=== PATIENT | female | born 1995 | race Two or more races ===

== ENCOUNTER 2019-06-25 12:34 | Emergency (ER) | payer BC ==
[~2019-06-25] VITALS: Ht 170.2 cm; Wt 72.1 kg
[2019-06-25 12:41] VITALS: BP 126/83
[2019-06-25] MEDS ORDERED: ALBUTEROL FS 2.5 MG/3 ML VIAL.NEB CONTNEB ONE (13:00)
[2019-06-25] MEDS ORDERED: IPRATROPIUM NEB FS 0.5 MG/2.5 ML AMPUL.NEB NEB ONE (13:00)
[2019-06-25 13:06] LABS: APPEARANCE,URINE Clear (CLEAR); BILIRUBIN,URINE Negative (NEGATIVE); BLOOD, URINE Small Ery/uL (NEGATIVE); COLOR,URINE Yellow (YELLOW); KETONES,URINE Negative (NEGATIVE); LEUKOCYTE ESTERASE ,URINE Trace (NEGATIVE); NITRITE, URINE Negative (NEGATIVE); PROTEIN,URINE Negative (NEGATIVE); UGLUCOSE Negative (NEGATIVE); UROBILINOGEN,URINE 0.2 EU/dL (0.2)
[2019-06-25 13:08] LABS: BACTERIA,URINE Few /HPF (None Seen)
[2019-06-25 13:09] LABS: SQUAMOUS EPITHELIAL CELL,UR Few /HPF (None Seen)
[2019-06-25] MEDS ORDERED: ALBUTEROL FS 2.5 MG/3 ML VIAL.NEB ONE (13:10)
[2019-06-25] MEDS ORDERED: FLUCONAZOLE (100 MG) 100 MG TABLET PO ONE (13:30)
--- NOTE | 2019-06-25 13:30 | NUR ---
RT PATIENT WAS DISCHARGED BEFORE THE TX WAS FINISHED.
[2019-06-25] MEDS ORDERED: FLUCONAZOLE (100 MG) 100 MG TABLET ONE (13:43)
== END 2019-06-25 13:59 | disposition home or self-care (01) ==
LOC: ER 12:34
DX: J45.901 Unspecified asthma with (acute) exacerbation (principal); N89.8 Other specified noninflammatory disorders of vagina
CPT/HCPCS: 72170-TC; 81000-TC; 84703-TC

== ENCOUNTER 2020-01-20 10:17 | Emergency (ER) | payer BC ==
[~2020-01-20] VITALS: Ht 170.2 cm; Wt 70.8 kg
[2020-01-20 10:29] VITALS: BP 132/85
--- NOTE | 2020-01-20 11:20 | NUR ---
AT BEDSIDE FOR EVAL.
[2020-01-20] MEDS ORDERED: LIDOCAINE VISCOUS 2% UD 15 ML UDC MM ONE (11:30)
[2020-01-20] MEDS ORDERED: IBUPROFEN 600 MG TABLET PO ONE ×2 (11:30→11:33)
--- NOTE | 2020-01-20 11:30 | NUR ---
RAPID STREP OBTAINED AND SENT TO LAB.
[2020-01-20] MEDS ORDERED: LIDOCAINE VISCOUS 2% UD 15 ML UDC ONE (11:33)
--- NOTE | 2020-01-20 12:51 | NUR ---
Patient discharged to home in stable condition. Written and verbal after care instructions given. Patient verbalizes understanding of instruction.
== END 2020-01-20 12:52 | disposition home or self-care (01) ==
LOC: ER 10:17
DX: J02.9 Acute pharyngitis, unspecified (principal); J45.909 Unspecified asthma, uncomplicated
CPT/HCPCS: 86403-TC; 87070-TC